=== PATIENT | female | born 1980 | race African-American/Black ===

== ENCOUNTER 2016-04-15 01:57 | Emergency (ER) | payer OTHER ==
[~2016-04-15] VITALS: Ht 162.6 cm; Wt 117.9 kg
[~2016-04-15 01:57] MED LIST: ACCUNEB SO1.25 MG/1 INH; ALLEGRA-D 12 H1 EAC1 PO; AMOXICILLIN 50500 M1 PO; AMOXICILLIN 50500 MG PO; AZITHROMYCIN 2250 MG PO; BACTRIM DS TAB1 EACH PO; BLOOD PRESSURE MED; BUTALB-ACETAMI1 EAC2 PO; BUTALB-APAP-CA1 EACH PO; COLACE100 MG PO; DELTASONE20 MG PO; FLONASE 0.05%50 MCG NASAL; HYDROCHLOROTH12.5 M2 PO; HYDROCHLOROTHIA25 M2 PO; HYDROCODON-ACE1 EAC7 PO; IBUPROFEN 600600 M1 PO; IBUPROFEN 800800 M1 PO; IBUPROFEN 800800 MG PO; IRON325 PO; KEFLEX500 MG PO; MEDROLDOSEPACK PO; MEDROXYPROGESTE10 MG PO; MIGRAINE MED; MOBIC15 MG PO; MUCINEX SINUS-1 EACH PO; NAPROSYN500 MG PO; NOHOMEMEDICATIONS; NORCO 5-325 TA1 EACH PO; PREDNISONE 20 M20 M1 PO; PREDNISONE 20 M20 MG PO; PROAIR HFA8.5 GM INH; TESSALON PERLE100 MG PO; ULTRAM 50MG TAB50 MG PO; VENTOLIN HFA 1818 GM INH; ZPAK PO
[2016-04-15] MEDS ORDERED: VENTOLIN HFA 1818 GM INH (02:12)
[2016-04-15] MEDS ORDERED: ACETAMINOPHEN-1 EAC1 PO (02:12)
[2016-04-15] MEDS ORDERED: MEDROLDOSEPACK PO (02:12)
[2016-05-04] MEDS ORDERED: VENTOLIN HFA 1818 GM INH (08:51)
[2016-05-05] MEDS ORDERED: HYDROCODONE-AP1 EAC6 PO (11:16)
[2016-05-05] MEDS ORDERED: SENNA-S TABLET1 EACH PO (11:16)
[2016-05-15] MEDS ORDERED: PANTOPRAZOLE SO40 M1 PO (04:59)
[2016-05-15] MEDS ORDERED: BENTYL 20 MG TA20 M1 PO (04:59)
[2016-05-22] MEDS ORDERED: NORCO 5-325 TA1 EACH PO (08:38)
[2016-05-22] MEDS ORDERED: PROTONIX40 MG PO (08:38)
[2016-05-22] MEDS ORDERED: MAALOX MAXIMUM355 ML PO (08:38)
[2016-05-23] MEDS ORDERED: HYDROCODON-ACE1 EAC7 PO (09:40)
[2016-05-23] MEDS ORDERED: BLOOD PRESSURE MED (09:51)
[2016-05-23] MEDS ORDERED: VENTOLIN HFA 1818 GM INH (09:54)
[2016-05-23] MEDS ORDERED: ANTACID LIQUID355 ML PO (09:55)
[2016-05-24] MEDS ORDERED: SENNA-S TABLET1 EACH PO (12:42)
[2016-05-24] MEDS ORDERED: HYDROCODONE-APA1 TA1 PO (12:42)
== END 2016-04-15 02:41 | disposition home or self-care (01) ==
LOC: ER 01:57
DX: J45.901 Unspecified asthma with (acute) exacerbation (principal); J06.9 Acute upper respiratory infection, unspecified; I10 Essential (primary) hypertension; G43.809 Other migraine, not intractable, without status migrainosus; M19.90 Unspecified osteoarthritis, unspecified site; F17.210 Nicotine dependence, cigarettes, uncomplicated; Z98.890 Other specified postprocedural states; Z86.2 Personal history of diseases of the blood and blood-forming organs and certain disorders involving the immune mechanism; Z85.89 Personal history of malignant neoplasm of other organs and systems; Z90.710 Acquired absence of both cervix and uterus

== ENCOUNTER 2016-08-08 23:07 | Emergency (ER) | payer OTHER ==
[~2016-08-08] VITALS: Ht 160 cm; Wt 113.4 kg
[~2016-08-08 23:07] MED LIST changes: +ACETAMINOPHEN-1 EAC1 PO; +ANTACID LIQUID355 ML PO; +BENTYL 20 MG TA20 M1 PO; +HYDROCODONE-AP1 EAC6 PO; +HYDROCODONE-APA1 TA1 PO; +MAALOX MAXIMUM355 ML PO; +PANTOPRAZOLE SO40 M1 PO; +PROTONIX40 MG PO; +SENNA-S TABLET1 EACH PO
== END 2016-08-09 01:32 | disposition home or self-care (01) ==
LOC: ER 23:07
DX: H73.22 Unspecified myringitis, left ear (principal); R59.0 Localized enlarged lymph nodes; J45.909 Unspecified asthma, uncomplicated; I10 Essential (primary) hypertension; G43.909 Migraine, unspecified, not intractable, without status migrainosus; F17.210 Nicotine dependence, cigarettes, uncomplicated; Z98.890 Other specified postprocedural states; Z85.41 Personal history of malignant neoplasm of cervix uteri; Z90.710 Acquired absence of both cervix and uterus

== ENCOUNTER 2017-03-21 12:51 | Emergency (ER) | payer OTHER ==
[2017-03-21 12:57] VITALS: BP 116/49
[2017-11-16] MEDS ORDERED: IBUPROFEN 200200 M1 PO (21:51)
[2017-11-16] MEDS ORDERED: VENTOLIN HFA 1818 GM INH (23:00)
[2017-11-16] MEDS ORDERED: PREDNISONE 20 M20 MG PO (23:00)
[2017-11-16] MEDS ORDERED: CORTISPORIN OTI10 M2 OTIC (23:00)
== END 2017-03-21 16:52 | disposition home or self-care (01) ==
LOC: ER 12:51
DX: J45.909 Unspecified asthma, uncomplicated (principal); I10 Essential (primary) hypertension; C53.9 Malignant neoplasm of cervix uteri, unspecified; Z98.890 Other specified postprocedural states; F17.210 Nicotine dependence, cigarettes, uncomplicated

== ENCOUNTER 2017-04-05 22:24 | Emergency (ER) | payer OTHER ==
[~2017-04-05] VITALS: Ht 160 cm; Wt 127.0 kg
[2017-04-05 23:20] VITALS: BP 141/81
[2017-04-06] MEDS ORDERED: OXYCODONE HCL 55 MG PO (02:22)
[2017-04-06] MEDS ORDERED: DOXYCYCLINE 10100 MG PO (02:22)
[2017-11-16] MEDS ORDERED: IBUPROFEN 200200 M1 PO (21:51)
[2017-11-16] MEDS ORDERED: VENTOLIN HFA 1818 GM INH (23:00)
[2017-11-16] MEDS ORDERED: CORTISPORIN OTI10 M2 OTIC (23:00)
[2017-11-16] MEDS ORDERED: PREDNISONE 20 M20 MG PO (23:00)
== END 2017-04-06 02:38 | disposition home or self-care (01) ==
LOC: ER 22:24
DX: L02.415 Cutaneous abscess of right lower limb (principal)

== ENCOUNTER 2017-04-29 17:33 | Emergency (ER) | payer OTHER ==
[~2017-04-29] VITALS: Ht 180.3 cm; Wt 136.1 kg
[~2017-04-29 17:33] MED LIST changes: +DOXYCYCLINE 10100 MG PO; +OXYCODONE HCL 55 MG PO
[2017-04-29 17:48] VITALS: BP 144/79
[2017-04-29] MEDS ORDERED: HYDROCHLOROTH12.5 M1 PO (17:51)
[2017-04-29] MEDS ORDERED: AUGMENTIN 875-1 EACH PO (17:54)
[2017-04-29] MEDS ORDERED: HYDROCHLOROTHIA25 M2 PO (17:54)
[2017-04-29] MEDS ORDERED: FLONASE 0.05%50 MCG NASAL (17:54)
[2017-11-16] MEDS ORDERED: IBUPROFEN 200200 M1 PO (21:51)
[2017-11-16] MEDS ORDERED: CORTISPORIN OTI10 M2 OTIC (23:00)
[2017-11-16] MEDS ORDERED: VENTOLIN HFA 1818 GM INH (23:00)
[2017-11-16] MEDS ORDERED: PREDNISONE 20 M20 MG PO (23:00)
== END 2017-04-29 18:06 | disposition home or self-care (01) ==
LOC: ER 17:33
DX: J32.9 Chronic sinusitis, unspecified (principal); J45.909 Unspecified asthma, uncomplicated; I10 Essential (primary) hypertension; F17.210 Nicotine dependence, cigarettes, uncomplicated; G43.909 Migraine, unspecified, not intractable, without status migrainosus; Z85.41 Personal history of malignant neoplasm of cervix uteri

== ENCOUNTER 2017-08-24 20:24 | Emergency (ER) | payer OTHER ==
[~2017-08-24] VITALS: Ht 160 cm; Wt 124.7 kg
[~2017-08-24 20:24] MED LIST changes: +AUGMENTIN 875-1 EACH PO; +HYDROCHLOROTH12.5 M1 PO
[2017-08-24] MEDS ORDERED: MUCINEX D ER 11 EACH PO (20:53)
[2017-08-24] MEDS ORDERED: ULTRAM 50MG TAB50 MG PO (20:53)
[2017-08-24] MEDS ORDERED: VENTOLIN HFA 1818 GM INH (20:57)
== END 2017-08-24 21:43 | disposition home or self-care (01) ==
LOC: ER 20:24
DX: J06.9 Acute upper respiratory infection, unspecified (principal); I10 Essential (primary) hypertension; J45.909 Unspecified asthma, uncomplicated; G43.909 Migraine, unspecified, not intractable, without status migrainosus; Z85.41 Personal history of malignant neoplasm of cervix uteri; F17.210 Nicotine dependence, cigarettes, uncomplicated

== ENCOUNTER 2017-12-08 03:44 | Emergency (ER) | payer OTHER ==
[~2017-12-08] VITALS: Ht 160 cm; Wt 136.1 kg
[~2017-12-08 03:44] MED LIST changes: +CORTISPORIN OTI10 M2 OTIC; +IBUPROFEN 200200 M1 PO; +MUCINEX D ER 11 EACH PO
[2017-12-08] MEDS ORDERED: LISINOPRIL5 MG PO (03:48)
[2017-12-08 04:18] LABS: HEMOGLOBIN 13.3 gm/dL (12.0-15.0)
[2017-12-08 04:20] LABS: ABSOLUTE NEUTROPHILS 5.3 thou/uL (1.4-8.2); BASOPHILS 0.9 % (0.0-2.0); EOSINOPHILS 2.5 % (0.0-3.0); HEMATOCRIT 39.6 % (37.0-47.0); LYMPHOCYTES 23.4 % (24.0-44.0); MCH 29.8 pg (26.0-34.0); MCHC 33.5 g/dL (28.0-37.0); MCV 88.9 fL (80.0-100.0); MONOCYTES 6.4 % (1.0-8.0); PLATELET COUNT 252 thou/uL (150-400); POLYS 66.8 % (36.0-66.0); RBC 4.46 mil/uL (4.20-5.00); RDW 13.6 % (10.5-14.5); WBC 7.9 thou/uL (4.0-11.0)
[2017-12-08 04:26] LABS: CALCIUM 9.8 mg/dL (8.5-10.1); CREATININE 1.1 mg/dL (0.6-1.0); POTASSIUM 3.7 mmol/L (3.5-5.1)
[2017-12-08] MEDS ORDERED: BENTYL 20 MG TA20 M1 PO (05:18)
[2017-12-08] MEDS ORDERED: PREDNISONE 20 M20 M1 PO (05:18)
== END 2017-12-08 05:27 | disposition home or self-care (01) ==
LOC: ER 03:44
PROVIDERS: Emergency Medicine
DX: K52.9 Noninfective gastroenteritis and colitis, unspecified (principal); T78.1XXA Other adverse food reactions, not elsewhere classified, initial encounter; F17.210 Nicotine dependence, cigarettes, uncomplicated; J45.909 Unspecified asthma, uncomplicated; I10 Essential (primary) hypertension; G43.909 Migraine, unspecified, not intractable, without status migrainosus; Z85.41 Personal history of malignant neoplasm of cervix uteri; Z98.890 Other specified postprocedural states; Z90.710 Acquired absence of both cervix and uterus

== ENCOUNTER 2017-12-10 01:27 | Emergency (ER) | payer OTHER ==
[~2017-12-10] VITALS: Ht 160 cm; Wt 136.1 kg
--- NOTE | ~2017-12-10 | EKG ---
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
[~2017-12-10 01:27] MED LIST changes: +LISINOPRIL5 MG PO
[2017-12-10 02:16] LABS: HEMATOCRIT 41.2 % (37.0-47.0); HEMOGLOBIN 13.8 gm/dL (12.0-15.0); MCH 29.9 pg (26.0-34.0); MCHC 33.4 g/dL (28.0-37.0); MCV 89.5 fL (80.0-100.0); RBC 4.6 mil/uL (4.20-5.00); RDW 14.2 % (10.5-14.5)
[2017-12-10 02:25] LABS: ANION GAP 9 mmol/L (7-16); BUN 13 mg/dL (7-18); CALCIUM 9.5 mg/dL (8.5-10.1); CHLORIDE 104 mmol/L (98-107); CO2 27 mmol/L (21-32); CREATININE 1.3 mg/dL (0.6-1.0); GLUCOSE 141 mg/dL (74-106); POTASSIUM 4.2 mmol/L (3.5-5.1); SODIUM 140 mmol/L (136-145)
[2017-12-10 02:33] LABS: ALBUMIN 3.5 g/dL (3.4-5.0); SGOT 19 U/L (15-37); SGPT 26 U/L (30-65); TOTAL BILIRUBIN 0.3 mg/dL (<0.1-1.0); TOTAL PROTEIN 7.8 g/dL (6.4-8.2); TROPONIN-I <0.06 ng/mL (<0.06)
== END 2017-12-10 04:11 | disposition home or self-care (01) ==
LOC: ER 01:27
PROVIDERS: Emergency Medicine
DX: R07.89 Other chest pain (principal); R06.02 Shortness of breath; F17.210 Nicotine dependence, cigarettes, uncomplicated; J45.909 Unspecified asthma, uncomplicated; I10 Essential (primary) hypertension; G43.909 Migraine, unspecified, not intractable, without status migrainosus; Z98.890 Other specified postprocedural states; Z90.710 Acquired absence of both cervix and uterus; Z85.41 Personal history of malignant neoplasm of cervix uteri

== ENCOUNTER 2018-10-30 10:26 | Emergency (ER) | payer OTHER ==
[~2018-10-30] VITALS: Ht 160 cm; Wt 127.0 kg
[2018-10-30 12:16] VITALS: BP 123/61
== END 2018-10-30 12:07 | disposition home or self-care (01) ==
LOC: ER 10:26
DX: M25.561 Pain in right knee (principal); F17.210 Nicotine dependence, cigarettes, uncomplicated; I10 Essential (primary) hypertension; G43.909 Migraine, unspecified, not intractable, without status migrainosus; J45.909 Unspecified asthma, uncomplicated; Z98.890 Other specified postprocedural states; Z90.710 Acquired absence of both cervix and uterus; Z85.41 Personal history of malignant neoplasm of cervix uteri

== ENCOUNTER 2019-01-27 17:23 | Emergency (ER) | payer OTHER ==
[~2019-01-27] VITALS: Ht 160 cm; Wt 125.2 kg
[2019-01-27 18:11] LABS: URINE BILIRUBIN NEGATIVE (Negative); URINE BLOOD TRACE (Negative); URINE CLARITY CLEAR; URINE COLOR YELLOW; URINE GLUCOSE-RANDOM* NEGATIVE (Negative); URINE KETONES TRACE (Negative); URINE LEUKOCYTES-REFLEX NEGATIVE (Negative); URINE NITRITE-REFLEX NEGATIVE (Negative); URINE PROTEIN (DIPSTICK) NEGATIVE (Negative); URINE SPECIFIC GRAVITY 1.025 (1.005-1.035); URINE UROBILINOGEN 0.2 E.U./dl (0.2-1.0)
[2019-01-27 19:21] VITALS: BP 151/92
== END 2019-01-27 19:22 | disposition home or self-care (01) ==
LOC: ER 17:23
PROVIDERS: Physician Assistant
DX: R10.33 Periumbilical pain (principal); R10.13 Epigastric pain; R39.15 Urgency of urination; I10 Essential (primary) hypertension; J45.909 Unspecified asthma, uncomplicated; G43.909 Migraine, unspecified, not intractable, without status migrainosus; F17.210 Nicotine dependence, cigarettes, uncomplicated; Z98.890 Other specified postprocedural states; Z90.710 Acquired absence of both cervix and uterus; Z85.41 Personal history of malignant neoplasm of cervix uteri

== ENCOUNTER 2019-10-21 07:17 | Emergency (ER) | payer OTHER ==
[~2019-10-21] VITALS: Ht 160 cm; Wt 124.7 kg
[2019-10-21 07:46] LABS: ABSOLUTE NEUTROPHILS 4.3 thou/uL (1.4-8.2); BASOPHILS 0.9 % (0.0-2.0); EOSINOPHILS 5.5 % (0.0-3.0); HEMATOCRIT 39.6 % (37.0-47.0); HEMOGLOBIN 13.6 gm/dL (12.0-15.0); LYMPHOCYTES 34.6 % (24.0-44.0); MCH 31.4 pg (26.0-34.0); MCHC 34.3 g/dL (28.0-37.0); MCV 91.6 fL (80.0-100.0); MONOCYTES 6.5 % (1.0-8.0); PLATELET COUNT 250 thou/uL (150-400); POLYS 52.5 % (36.0-66.0); RBC 4.32 mil/uL (4.20-5.00); RDW 13.2 % (10.5-14.5); WBC 8.1 thou/uL (4.0-11.0)
--- NOTE | 2019-10-21 08:08 | EKG ---
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: [facility] : 1980 Requested By: Noam Bonilla Order Number: [id number] MD: Arben Saenz Measurements Intervals [place] Rate: 91 P: [place]: QRS: 54 QRSD: 99 T: -37 QT: 460 QTc: 567 Interpretive Statements Atrial fibrillation Nonspecific T wave abnormality Compared to ECG 12/10/2017 01:38:54 Recommend repeat tracing in the absence of artifact Electronically Signed On 10-21-2019 8:08:42 CDT by Arben Saenz [email or web address] <ELECTRONICALLY SIGNED> By: Arben Saenz MD, FACC 10/21/19807 1 1 Arben Saenz MD, [facility] /EPI
[2019-10-21 08:12] LABS: ANION GAP 7 mmol/L (7-16); BUN 12 mg/dL (7-18); CHLORIDE 106 mmol/L (98-107); CO2 28 mmol/L (21-32); CREATININE 1.1 mg/dL (0.6-1.0); GLUCOSE 83 mg/dL (74-106); POTASSIUM 3.9 mmol/L (3.5-5.1); SODIUM 141 mmol/L (136-145)
[2019-10-21 08:26] LABS: ALBUMIN 3.6 g/dL (3.4-5.0); LIPASE 135 U/L (73-393); MAGNESIUM 1.9 mg/dL (1.8-2.4); SGOT 22 U/L (15-37); SGPT 29 U/L (30-65); TOTAL BILIRUBIN 0.3 mg/dL (0.2-1.0); TOTAL PROTEIN 7.9 g/dL (6.4-8.2); TROPONIN-I <0.06 ng/mL (<0.06)
--- NOTE | 2019-10-21 08:38 | EKG ---
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[facility] : 1980 Requested By: Noam Bonilla Order Number: [id number] MD: Arben Saenz Measurements Intervals [place] Rate: 83 P: 50 NE: 140 QRS: 54 QRSD: 101 T: 6 QT: 350 QTc: 412 Interpretive Statements Sinus rhythm Borderline T wave abnormalities Compared to ECG 10/21/2019 07:22:20 Atrial fibrillation no longer present Electronically Signed On 10-21-2019 8:38:06 CDT by Arben Saenz [email or web address] <ELECTRONICALLY SIGNED> By: Arben Saenz MD, [facility] 10/21/19 [id number] Arben Saenz MD, [facility] /EPI
[2019-10-21] MEDS ORDERED: TRAMADOL 50 MG50 MG PO (10:44)
[2019-10-21] MEDS ORDERED: PRILOSEC OTC20 MG PO (10:44)
[2019-10-21] MEDS ORDERED: NORFLEX100 MG PO (10:45)
[2019-10-21] MEDS ORDERED: NAPROXEN375 MG PO (10:45)
[2019-10-21] MEDS ORDERED: VENTOLIN HFA 1818 GM INH (10:46)
[2019-10-21 10:51] VITALS: BP 133/74
== END 2019-10-21 10:51 | disposition home or self-care (01) ==
LOC: ER 07:17
PROVIDERS: Emergency Medicine
DX: K40.90 Unilateral inguinal hernia, without obstruction or gangrene, not specified as recurrent (principal); K42.9 Umbilical hernia without obstruction or gangrene; M54.5 Low back pain; J45.909 Unspecified asthma, uncomplicated; R07.89 Other chest pain; G43.909 Migraine, unspecified, not intractable, without status migrainosus; R06.83 Snoring; I10 Essential (primary) hypertension; F17.210 Nicotine dependence, cigarettes, uncomplicated; Z90.711 Acquired absence of uterus with remaining cervical stump; Z98.890 Other specified postprocedural states; Z85.41 Personal history of malignant neoplasm of cervix uteri; K92.1 Melena

== ENCOUNTER 2019-12-21 21:12 | Emergency (ER) | payer OTHER ==
[~2019-12-21] VITALS: Ht 160 cm; Wt 120.2 kg
[~2019-12-21 21:12] MED LIST changes: +NAPROXEN375 MG PO; +NORFLEX100 MG PO; +PRILOSEC OTC20 MG PO; +TRAMADOL 50 MG50 MG PO
[2019-12-21 21:38] LABS: URINE BILIRUBIN NEGATIVE (Negative); URINE BLOOD NEGATIVE (Negative); URINE CLARITY CLEAR; URINE COLOR YELLOW; URINE GLUCOSE-RANDOM* NEGATIVE (Negative); URINE KETONES NEGATIVE (Negative); URINE LEUKOCYTES-REFLEX NEGATIVE (Negative); URINE NITRITE-REFLEX NEGATIVE (Negative); URINE PROTEIN (DIPSTICK) NEGATIVE (Negative)
[2019-12-21 22:16] LABS: ABSOLUTE NEUTROPHILS 4.9 thou/uL (1.4-8.2); EOSINOPHILS 4.9 % (0.0-3.0); HEMATOCRIT 39.7 % (37.0-47.0); HEMOGLOBIN 13.3 gm/dL (12.0-15.0); LYMPHOCYTES 30.5 % (24.0-44.0); MCH 30.7 pg (26.0-34.0); MCHC 33.4 g/dL (28.0-37.0); MCV 91.8 fL (80.0-100.0); MONOCYTES 7.5 % (1.0-8.0); PLATELET COUNT 232 thou/uL (150-400); POLYS 56.1 % (36.0-66.0); RBC 4.32 mil/uL (4.20-5.00); RDW 13.2 % (10.5-14.5); WBC 8.7 thou/uL (4.0-11.0)
[2019-12-21 22:24] LABS: CALCIUM 8.7 mg/dL (8.5-10.1); CREATININE 1.1 mg/dL (0.6-1.0); POTASSIUM 3.9 mmol/L (3.5-5.1)
[2019-12-21 22:31] LABS: ALBUMIN 3.3 g/dL (3.4-5.0); TOTAL BILIRUBIN 0.3 mg/dL (0.2-1.0)
[2019-12-21] MEDS ORDERED: PRILOSEC OTC20 MG PO (23:57)
[2019-12-21] MEDS ORDERED: NAPROSYN500 MG PO (23:57)
[2019-12-21] MEDS ORDERED: TRAMADOL 50 MG50 MG PO (23:57)
[2019-12-22 00:21] VITALS: BP 142/76
== END 2019-12-22 00:20 | disposition home or self-care (01) ==
LOC: ER 21:12
PROVIDERS: Emergency Medicine
DX: K59.00 Constipation, unspecified (principal); K42.9 Umbilical hernia without obstruction or gangrene; R35.0 Frequency of micturition; R11.0 Nausea; I10 Essential (primary) hypertension; J45.909 Unspecified asthma, uncomplicated; G43.909 Migraine, unspecified, not intractable, without status migrainosus; F17.210 Nicotine dependence, cigarettes, uncomplicated; Z90.710 Acquired absence of both cervix and uterus; Z79.899 Other long term (current) drug therapy

== ENCOUNTER 2020-04-19 06:15 | Emergency (ER) | payer OTHER ==
[~2020-04-19] VITALS: Ht 160 cm; Wt 116.1 kg
[2020-04-19 06:18] VITALS: BP 116/76
== END 2020-04-19 06:45 | disposition home or self-care (01) ==
LOC: ER 06:15
DX: S10.86XA Insect bite of other specified part of neck, initial encounter (principal); I10 Essential (primary) hypertension; G43.909 Migraine, unspecified, not intractable, without status migrainosus; F17.210 Nicotine dependence, cigarettes, uncomplicated; J45.909 Unspecified asthma, uncomplicated; Z98.890 Other specified postprocedural states; Z79.899 Other long term (current) drug therapy; Z90.710 Acquired absence of both cervix and uterus; Z71.1 Person with feared health complaint in whom no diagnosis is made; W57.XXXA Bitten or stung by nonvenomous insect and other nonvenomous arthropods, initial encounter; Y93.89 Activity, other specified; Y92.89 Other specified places as the place of occurrence of the external cause; Y99.9 Unspecified external cause status

== ENCOUNTER 2020-09-10 13:46 | Emergency (ER) | payer OTHER ==
[~2020-09-10] VITALS: Ht 160 cm; Wt 111.1 kg
[2020-09-10 15:28] LABS: URINE BILIRUBIN NEGATIVE (Negative); URINE BLOOD TRACE (Negative); URINE CLARITY CLEAR; URINE COLOR YELLOW; URINE GLUCOSE-RANDOM* NEGATIVE (Negative); URINE KETONES NEGATIVE (Negative); URINE LEUKOCYTES-REFLEX NEGATIVE (Negative); URINE NITRITE-REFLEX NEGATIVE (Negative); URINE PROTEIN (DIPSTICK) NEGATIVE (Negative); URINE SPECIFIC GRAVITY 1.025 (1.005-1.035)
[2020-09-10 15:28] LABS: HEMATOCRIT 39.7 % (37.0-47.0); HEMOGLOBIN 13.3 gm/dL (12.0-15.0); MCHC 33.4 g/dL (28.0-37.0); MCV 92.9 fL (80.0-100.0); RBC 4.28 mil/uL (4.20-5.00); RDW 12.7 % (10.5-14.5); WBC 5.3 thou/uL (4.0-11.0)
[2020-09-10 15:39] LABS: ANION GAP 8 mmol/L (7-16); BUN 10 mg/dL (7-18); CALCIUM 8.8 mg/dL (8.5-10.1); CHLORIDE 106 mmol/L (98-107); CO2 29 mmol/L (21-32); CREATININE 0.9 mg/dL (0.6-1.0); GLUCOSE 97 mg/dL (74-106); POTASSIUM 3.6 mmol/L (3.5-5.1); SODIUM 143 mmol/L (136-145)
[2020-09-10 15:49] LABS: ALBUMIN 3.5 g/dL (3.4-5.0); SGOT 18 U/L (15-37); SGPT 24 U/L (30-65); TOTAL BILIRUBIN 0.5 mg/dL (0.2-1.0); TOTAL PROTEIN 7.5 g/dL (6.4-8.2); TROPONIN-I <0.06 ng/mL (<0.06)
[2020-09-10] MEDS ORDERED: MEDROLDOSEPACK PO (17:14)
[2020-09-10] MEDS ORDERED: FLAGYL500 M1 PO (17:14)
[2020-09-10 17:48] VITALS: BP 145/77
--- NOTE | 2020-09-13 07:10 | EKG ---
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 : 1980 Requested By: Cherise Stock Order Number: [id number] MD: Francisco Bashir Measurements Intervals [place] Rate: 81 P: 51 IA: 136 QRS: 55 QRSD: 101 T: 4 QT: 363 QTc: 422 Interpretive Statements Sinus rhythm Low voltage, precordial leads Borderline T abnormalities, diffuse leads Compared to ECG 10/21/2019 07:54:34 Low QRS voltage now present T-wave abnormality still present Electronically Signed On 09-13-2020 7:10:19 CDT by Francisco Bashir [email or web address] <ELECTRONICALLY SIGNED> By: Francisco Bashir MD, [facility] 09/13/20 0710 [id number] [id number] Francisco Bashir MD, [facility] /EPI
== END 2020-09-10 17:50 | disposition home or self-care (01) ==
LOC: ER 13:46
PROVIDERS: Nurse Practitioner Family
DX: R07.89 Other chest pain (principal); N76.0 Acute vaginitis; J45.909 Unspecified asthma, uncomplicated; I10 Essential (primary) hypertension; G43.909 Migraine, unspecified, not intractable, without status migrainosus; F17.210 Nicotine dependence, cigarettes, uncomplicated; Z90.710 Acquired absence of both cervix and uterus; Z98.890 Other specified postprocedural states

== ENCOUNTER 2020-10-07 19:36 | Emergency (ER) | payer OTHER ==
[~2020-10-07] VITALS: Ht 149.9 cm; Wt 111.1 kg
[~2020-10-07 19:36] MED LIST changes: +FLAGYL500 M1 PO
[2020-10-08] MEDS ORDERED: DOXYCYCLINE 10100 MG PO (00:35)
[2020-10-08] MEDS ORDERED: HYDROCODON-ACE1 EAC7 PO (00:35)
[2020-10-08 01:05] VITALS: BP 102/59
== END 2020-10-08 01:05 | disposition home or self-care (01) ==
LOC: ER 19:36
DX: S83.91XA Sprain of unspecified site of right knee, initial encounter (principal); N89.8 Other specified noninflammatory disorders of vagina; W18.39XA Other fall on same level, initial encounter; Y93.89 Activity, other specified; Y92.89 Other specified places as the place of occurrence of the external cause; Y99.8 Other external cause status

== ENCOUNTER 2020-12-20 20:30 | Emergency (ER) | payer OTHER ==
[~2020-12-20] VITALS: Ht 160 cm; Wt 117.9 kg
== END 2020-12-20 21:16 | disposition left against medical advice (07) ==
LOC: ER 20:30
DX: R10.9 Unspecified abdominal pain (principal); J45.909 Unspecified asthma, uncomplicated; G43.909 Migraine, unspecified, not intractable, without status migrainosus; Z53.21 Procedure and treatment not carried out due to patient leaving prior to being seen by health care provider; Z98.890 Other specified postprocedural states; Z90.710 Acquired absence of both cervix and uterus; Z85.89 Personal history of malignant neoplasm of other organs and systems; Z90.79 Acquired absence of other genital organ(s)

== ENCOUNTER 2021-01-04 18:07 | Emergency (ER) | payer OTHER ==
[~2021-01-04] VITALS: Ht 157.5 cm; Wt 117.9 kg
[2021-01-04 19:56] LABS: URINE BILIRUBIN NEGATIVE (Negative); URINE BLOOD 1+ (Negative); URINE CLARITY CLEAR; URINE COLOR YELLOW; URINE GLUCOSE-RANDOM* NEGATIVE (Negative); URINE KETONES NEGATIVE (Negative); URINE LEUKOCYTES-REFLEX NEGATIVE (Negative); URINE NITRITE-REFLEX NEGATIVE (Negative); URINE PROTEIN (DIPSTICK) NEGATIVE (Negative); URINE SPECIFIC GRAVITY 1.025 (1.005-1.035); URINE UROBILINOGEN 0.2 E.U./dl (0.2-1.0)
[2021-01-04 19:56] LABS: BASOPHILS 0.9 % (0.0-2.0); EOSINOPHILS 2.7 % (0.0-3.0); HEMATOCRIT 40.1 % (37.0-47.0); HEMOGLOBIN 13.7 gm/dL (12.0-15.0); MCH 31.9 pg (26.0-34.0); MCHC 34.2 g/dL (28.0-37.0); MCV 93.2 fL (80.0-100.0); MONOCYTES 6.3 % (1.0-8.0); PLATELET COUNT 221 thou/uL (150-400); POLYS 52.1 % (36.0-66.0); RDW 13.1 % (10.5-14.5); WBC 7.7 thou/uL (4.0-11.0)
[2021-01-04 20:04] LABS: ALBUMIN 3.7 g/dL (3.4-5.0); CREATININE 1.1 mg/dL (0.6-1.0); POTASSIUM 4.1 mmol/L (3.5-5.1); TOTAL BILIRUBIN 0.2 mg/dL (0.2-1.0); TOTAL PROTEIN 7.7 g/dL (6.4-8.2)
[2021-01-04 20:10] LABS: CALCIUM 8.9 mg/dL (8.5-10.1)
[2021-01-04 20:10] LABS: BACTERIA-REFLEX 1-9 Few /HPF (None Seen); CASTS None Seen /LPF (None Seen); SQUAMOUS 4-10 Moderate /LPF (0-3); URINE RBC 1-2 Rare /HPF (NONE SEEN); URINE WBC-REFLEX 0-5 Rare /HPF (0-5)
[2021-01-04 20:11] LABS: CRYSTALS None Seen /LPF (None Seen)
[2021-01-04] MEDS ORDERED: NORCO7.5 PO (20:20)
[2021-01-04] MEDS ORDERED: ZOFRAN ODT4 MG PO (20:20)
[2021-01-04 20:35] VITALS: BP 115/64
== END 2021-01-04 20:40 | disposition home or self-care (01) ==
LOC: ER 18:07
PROVIDERS: Emergency Medicine
DX: K43.9 Ventral hernia without obstruction or gangrene (principal); R10.9 Unspecified abdominal pain; J45.909 Unspecified asthma, uncomplicated; I10 Essential (primary) hypertension; G43.909 Migraine, unspecified, not intractable, without status migrainosus; F17.210 Nicotine dependence, cigarettes, uncomplicated; Z98.890 Other specified postprocedural states; Z90.710 Acquired absence of both cervix and uterus; Z85.850 Personal history of malignant neoplasm of thyroid; Z79.891 Long term (current) use of opiate analgesic; Z79.1 Long term (current) use of non-steroidal anti-inflammatories (NSAID); Z79.899 Other long term (current) drug therapy

== ENCOUNTER 2021-01-21 10:09 | Emergency (ER) | payer OTHER ==
[~2021-01-21] VITALS: Ht 160 cm; Wt 117.9 kg
[~2021-01-21 10:09] MED LIST changes: +NORCO7.5 PO; +ZOFRAN ODT4 MG PO
[2021-01-21 10:48] LABS: BASOPHILS 0.7 % (0.0-2.0); HEMATOCRIT 40.8 % (37.0-47.0); HEMOGLOBIN 13.7 gm/dL (12.0-15.0); LYMPHOCYTES 26.9 % (24.0-44.0); MCH 31.4 pg (26.0-34.0); MCHC 33.5 g/dL (28.0-37.0); MCV 93.9 fL (80.0-100.0); MONOCYTES 6.9 % (1.0-8.0); PLATELET COUNT 224 thou/uL (150-400); POLYS 63.5 % (36.0-66.0); RBC 4.35 mil/uL (4.20-5.00); RDW 13.1 % (10.5-14.5); WBC 7.9 thou/uL (4.0-11.0)
[2021-01-21 11:02] LABS: CALCIUM 9.1 mg/dL (8.5-10.1)
[2021-01-21 12:30] VITALS: BP 112/53
--- NOTE | 2021-01-22 11:22 | EKG ---
[place] [address] [facility] [employer] [place] [address] ELECTROCARDIOGRAM REPORT Name: DAKSHA MATT Room #: 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
== END 2021-01-21 12:31 | disposition home or self-care (01) ==
LOC: ER 10:09
PROVIDERS: Emergency Medicine
DX: R55 Syncope and collapse (principal); J45.909 Unspecified asthma, uncomplicated; I10 Essential (primary) hypertension; G43.909 Migraine, unspecified, not intractable, without status migrainosus; F17.210 Nicotine dependence, cigarettes, uncomplicated; Z98.890 Other specified postprocedural states; Z90.710 Acquired absence of both cervix and uterus; Z85.89 Personal history of malignant neoplasm of other organs and systems; Z79.891 Long term (current) use of opiate analgesic; Z79.899 Other long term (current) drug therapy

== ENCOUNTER 2021-02-12 10:45 | Emergency (ER) | payer OTHER ==
[~2021-02-12] VITALS: Ht 160 cm; Wt 117.9 kg
[2021-02-12 10:51] VITALS: BP 119/66
[2021-02-12] MEDS ORDERED: NORCO7.5 PO (11:24)
== END 2021-02-12 11:33 | disposition home or self-care (01) ==
LOC: ER 10:45
DX: S46.911A Strain of unspecified muscle, fascia and tendon at shoulder and upper arm level, right arm, initial encounter (principal); F17.210 Nicotine dependence, cigarettes, uncomplicated; J45.909 Unspecified asthma, uncomplicated; I10 Essential (primary) hypertension; G43.909 Migraine, unspecified, not intractable, without status migrainosus; Z90.710 Acquired absence of both cervix and uterus; Z98.890 Other specified postprocedural states; X50.1XXA Overexertion from prolonged static or awkward postures, initial encounter; Y93.89 Activity, other specified; Y92.89 Other specified places as the place of occurrence of the external cause; Y99.9 Unspecified external cause status

== ENCOUNTER 2021-03-10 12:25 | Emergency (ER) | payer OTHER ==
[2021-03-10 13:30] VITALS: BP 128/76
== END 2021-03-10 15:01 | disposition home or self-care (01) ==
LOC: ER 12:25
PROVIDERS: Physician Assistant
DX: J02.9 Acute pharyngitis, unspecified (principal); Z20.822 Contact with and (suspected) exposure to COVID-19; J45.909 Unspecified asthma, uncomplicated; I10 Essential (primary) hypertension; G43.909 Migraine, unspecified, not intractable, without status migrainosus; F17.210 Nicotine dependence, cigarettes, uncomplicated; Z85.41 Personal history of malignant neoplasm of cervix uteri; Z98.890 Other specified postprocedural states; Z90.710 Acquired absence of both cervix and uterus; Z79.891 Long term (current) use of opiate analgesic; Z79.899 Other long term (current) drug therapy

== ENCOUNTER 2021-03-12 21:47 | Emergency (ER) | payer OTHER ==
[~2021-03-12] VITALS: Ht 160 cm; Wt 117.9 kg
[2021-03-12 22:12] VITALS: BP 146/83
[2021-03-13] MEDS ORDERED: VENTOLIN HFA INH8 GM INH (00:22)
[2021-03-13] MEDS ORDERED: MOBIC15 MG PO (00:22)
[2021-03-13] MEDS ORDERED: TESSALON PERLE100 MG PO (00:22)
--- NOTE | 2021-03-14 07:20 | EKG ---
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 : 1980 Requested By: Sherin Hicks Order Number: [id number] MD: Francisco Bashir Measurements Intervals [place] Rate: 119 P: 53 OR: 132 QRS: 42 QRSD: 95 T: 207 QT: 263 QTc: 370 Interpretive Statements Sinus tachycardia Nonspecific T abnormalities, lateral leads Compared to ECG 01/21/2021 10:18:22 T-wave abnormality now present Sinus rhythm no longer present Electronically Signed On 03-14-2021 7:20:21 [employer] by Francisco Bashir [email or web address] <ELECTRONICALLY SIGNED> By: Francisco Bashir MD, [facility] 03/14/21 0720 23 23 Francisco Bashir MD, FACC /EPI
== END 2021-03-13 00:26 | disposition home or self-care (01) ==
LOC: ER 21:47
DX: U07.1 COVID-19 (principal); J45.909 Unspecified asthma, uncomplicated; I10 Essential (primary) hypertension; G43.909 Migraine, unspecified, not intractable, without status migrainosus; F17.210 Nicotine dependence, cigarettes, uncomplicated; Z85.41 Personal history of malignant neoplasm of cervix uteri; Z79.891 Long term (current) use of opiate analgesic; Z79.899 Other long term (current) drug therapy; Z98.890 Other specified postprocedural states; Z90.710 Acquired absence of both cervix and uterus

== ENCOUNTER 2021-03-22 10:13 | Emergency (ER) | payer OTHER ==
[~2021-03-22] VITALS: Ht 160 cm; Wt 113.4 kg
[~2021-03-22 10:13] MED LIST changes: +VENTOLIN HFA INH8 GM INH
[2021-03-22 11:39] VITALS: BP 126/63
[2021-03-22 13:56] LABS: URINE BILIRUBIN NEGATIVE (Negative); URINE BLOOD NEGATIVE (Negative); URINE CLARITY SL CLOUDY; URINE COLOR YELLOW; URINE GLUCOSE-RANDOM* NEGATIVE (Negative); URINE KETONES NEGATIVE (Negative); URINE LEUKOCYTES-REFLEX NEGATIVE (Negative); URINE NITRITE-REFLEX NEGATIVE (Negative); URINE PROTEIN (DIPSTICK) NEGATIVE (Negative); URINE SPECIFIC GRAVITY 1.025 (1.005-1.035)
[2021-03-22] MEDS ORDERED: METRONIDAZOLE500 M4 PO (14:49)
== END 2021-03-22 15:16 | disposition home or self-care (01) ==
LOC: ER 10:13
PROVIDERS: Nurse Practitioner
DX: N76.0 Acute vaginitis (principal); Z20.822 Contact with and (suspected) exposure to COVID-19; J45.909 Unspecified asthma, uncomplicated; I10 Essential (primary) hypertension; G43.909 Migraine, unspecified, not intractable, without status migrainosus; F17.210 Nicotine dependence, cigarettes, uncomplicated; Z90.710 Acquired absence of both cervix and uterus

== ENCOUNTER 2021-04-28 13:12 | Emergency (ER) | payer OTHER ==
[~2021-04-28] VITALS: Ht 160 cm; Wt 117.9 kg
[~2021-04-28 13:12] MED LIST changes: +METRONIDAZOLE500 M4 PO
[2021-04-28 13:14] VITALS: BP 148/74
== END 2021-04-28 14:10 | disposition home or self-care (01) ==
LOC: ER 13:12
DX: S06.0X0A Concussion without loss of consciousness, initial encounter (principal); J45.909 Unspecified asthma, uncomplicated; I10 Essential (primary) hypertension; G43.909 Migraine, unspecified, not intractable, without status migrainosus; F17.210 Nicotine dependence, cigarettes, uncomplicated; Z98.890 Other specified postprocedural states; Z90.710 Acquired absence of both cervix and uterus; W22.8XXA Striking against or struck by other objects, initial encounter; Y93.89 Activity, other specified; Y92.89 Other specified places as the place of occurrence of the external cause; Y99.8 Other external cause status

== ENCOUNTER 2021-05-03 23:46 | Emergency (ER) | payer OTHER ==
[~2021-05-03] VITALS: Ht 160 cm; Wt 117.9 kg
[2021-05-03 23:50] VITALS: BP 125/66
== END 2021-05-04 00:25 | disposition home or self-care (01) ==
LOC: ER 23:46
DX: G43.909 Migraine, unspecified, not intractable, without status migrainosus (principal); J45.909 Unspecified asthma, uncomplicated; I10 Essential (primary) hypertension; F17.210 Nicotine dependence, cigarettes, uncomplicated; Z98.890 Other specified postprocedural states; Z90.710 Acquired absence of both cervix and uterus; Z85.41 Personal history of malignant neoplasm of cervix uteri; Z79.899 Other long term (current) drug therapy; Z79.1 Long term (current) use of non-steroidal anti-inflammatories (NSAID); Z79.51 Long term (current) use of inhaled steroids